=== PATIENT | female | born 1975 | race Caucasian/White ===

== ENCOUNTER → 2017-01-23 | Outpatient (CLI) | payer OTHER | END | disposition home or self-care (01) | LOC: CDC 08:47 | DX: E66.01 Morbid (severe) obesity due to excess calories (principal) | CPT/HCPCS: 93000 ==

== ENCOUNTER 2017-05-02 21:17 | Inpatient (IN) | payer OTHER ==
[~2017-05-02] VITALS: Ht 165.1 cm; Wt 127.0 kg
[~2017-05-02 21:17] MED LIST: CLARITIN,ALAVAR10 MG PO; GUMMI BEAR MUL1 EACH PO; OMEPRAZOLE40 M1 PO
[2017-05-03 11:03] VITALS: BP 134/81
[2017-05-03 12:00] LABS: POINT-OF-CARE METER ID UU14174212
[2017-05-03 19:35] VITALS: BP 140/68
[2017-05-04 00:27] VITALS: BP 114/58
[2017-05-04 04:02] VITALS: BP 131/60
[2017-05-04 07:47] LABS: EOSINOPHIL (%) 0 % (0-5); HEMATOCRIT 34.9 % (36.0-46.0); IMMATURE GRANULOCYTE (%) 0.3 % (0.0-0.7); INSTRUMENT ABS NEUTROPHIL CT 9.5 K/uL; LYMPHOCYTE COUNT 1.3 K/uL (1.0-2.8); MCH 26.1 PG (29.0-34.0); MCHC 31.2 G/DL (30.0-36.0); MCV 83.7 FL (83-99); MEAN PLAT.VOLUME 9.8 uM^3 (9.5-12.4); MONOCYTE (%) 6.6 % (3-12); MONOCYTE COUNT 0.8 K/uL (0-0.8); NEUTROPHIL (%) 81.7 % (45-76); NEUTROPHIL COUNT 9.5 K/uL (1.8-6.4); PLATELET COUNT 281 K/uL (156-360); RBC DIS.WIDTH-CV 14.4 % (11.8-14.6); RED BLOOD COUNT 4.17 M/uL (3.80-5.20); WHITE BLOOD COUNT 11.7 K/uL (4.1-10.2)
[2017-05-04 08:05] VITALS: BP 155/73
[2017-05-04 09:13] VITALS: BP 137/78
== END 2017-05-04 09:28 | disposition home or self-care (01) | DRG 621 ==
LOC: ENRESERV 21:17 → 2SOUTH 05-03 09:13 → ENRESERV 05-03 10:13 → 2SOUTH 05-03 10:32 → ENRESERV 05-03 11:59 → 2SOUTH 05-03 14:23 → ENRESERV 05-03 16:47 → 2EAST 05-03 19:20
PROVIDERS: Surgery
PROC: 0DB64Z3 Excision of Stomach, Percutaneous Endoscopic Approach, Vertical (ICD-10-PCS; principal; 2017-05-03)
DX: E66.01 Morbid (severe) obesity due to excess calories (principal); Z68.42 Body mass index [BMI] 45.0-49.9, adult; K58.9 Irritable bowel syndrome, unspecified; D64.9 Anemia, unspecified; K21.9 Gastro-esophageal reflux disease without esophagitis; R51 Headache; R01.1 Cardiac murmur, unspecified; M19.90 Unspecified osteoarthritis, unspecified site
CPT/HCPCS: 82948; 85025; J0131; J0690; J1100; J1170; J1644; J1650; J2250; J2405; J2710; J2765; J3010; J3480; J7120; S0020